=== PATIENT | female | born 1980 | race American Indian/Alaskan Native ===

== ENCOUNTER 2021-08-18 18:59 | Emergency (ER) | payer OTHER ==
[2021-08-18 21:53] VITALS: BP 163/95
[2021-08-19] MEDS ORDERED: IBUPROFEN 600 MG TAB PO ONE (00:08)
[2021-08-19] MEDS ORDERED: diazePAM 5 MG TAB PO ONE (00:08)
[2021-08-19] MEDS ORDERED: ACETAMINOPHEN 500 MG TAB PO ONE (00:08)
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
== END 2021-08-19 03:00 | disposition home or self-care (01) ==
LOC: ED 18:59
DX: S39.012A Strain of muscle, fascia and tendon of lower back, initial encounter (principal); M62.830 Muscle spasm of back; Z91.013 Allergy to seafood; V89.2XXA Person injured in unspecified motor-vehicle accident, traffic, initial encounter; Y93.89 Activity, other specified; Y92.89 Other specified places as the place of occurrence of the external cause; Y99.8 Other external cause status
CPT/HCPCS: 72100; 99283